=== PATIENT | female | born 1990 | race Caucasian/White ===

== ENCOUNTER 2019-03-25 13:03 | Emergency (ER) | payer OTHER ==
[~2019-03-25] VITALS: Ht 165.1 cm; Wt 52.3 kg
[2019-03-25] MEDS ORDERED: CEPH25SS PO (13:15)
[2019-03-25] MEDS ORDERED: HYDR-3715 PO (13:15)
[2019-03-25] MEDS ORDERED: LIDOCAINE 2% MDV 20 ML VIAL SC ONE (14:00)
[2019-03-25 15:27] VITALS: BP 141/92
[2019-03-25] MEDS ORDERED: PERC5TAB12 PO (15:27)
[2019-03-25] MEDS ORDERED: ONDA4TAB6 PO (15:27)
[2019-03-25] MEDS ORDERED: BACI500O21 TOP (15:27)
== END 2019-03-25 15:39 | disposition home or self-care (01) ==
LOC: M ED 13:03
DX: S61.111A Laceration without foreign body of right thumb with damage to nail, initial encounter (principal); W31.82XA Contact with other commercial machinery, initial encounter; W26.8XXA Contact with other sharp object(s), not elsewhere classified, initial encounter; Y93.G3 Activity, cooking and baking; Y99.0 Civilian activity done for income or pay; Z79.2 Long term (current) use of antibiotics; Z79.899 Other long term (current) drug therapy